=== PATIENT | female | born 1985 | race African-American/Black ===

== ENCOUNTER 2020-06-26 07:38 | Emergency (ER) | payer SELFPAY ==
[2020-06-26 07:56] VITALS: BP 140/97; PULSE 65; TEMP 98.9; BMI 29.2
[2020-06-26] MEDS ORDERED: SODIUM CHLORIDE 0.9% 500 ML INFUS.BAG IV ONE (08:31)
[2020-06-26 09:16] LABS: BASO % 1.1 % (0-2.0); EOS % 2.3 % (0-4.5); HEMATOCRIT 34.8 % (32.4-45.2); HEMOGLOBIN 11.5 GM/dL (10.7-15.3); LYMPH % 40.1 % (8-40); MEAN PLT VOLUME 9.2 fl (7.5-11.1); MONO % 6.1 % (3.8-10.2); NEUT % 50.4 % (42.8-82.8); PLATELET COUNT 243 K/MM3 (134-434); RBC 3.96 M/mm3 (3.60-5.2); RDW 13.7 % (11.6-15.6); WHITE BLOOD COUNT 5.4 K/mm3 (4.0-10.0)
[2020-06-26 09:22] LABS: PH,URINE 6.5 (5.0-8.0); URINE APPEARANCE CLEAR; URINE BILIRUBIN NEGATIVE (NEGATIVE); URINE COLOR YELLOW; URINE GLUCOSE (UA) NEGATIVE (NEGATIVE); URINE KETONE NEGATIVE (NEGATIVE); URINE LEUK ESTERASE NEGATIVE (NEGATIVE); URINE NITRITE NEGATIVE (NEGATIVE); URINE PROTEIN NEGATIVE (NEGATIVE)
[2020-06-26 09:24] LABS: HCG,QUALITATIVE URINE Negative
[2020-06-26 09:31] LABS: POTASSIUM 4.5 mmol/L (3.5-5.1)
[2020-06-26 09:34] LABS: ALBUMIN 3.5 g/dl (3.4-5.0); BLOOD UREA NITROGEN 12.8 mg/dL (7-18); CALCIUM 8.6 mg/dL (8.5-10.1)
[2020-06-26 09:37] LABS: CREATININE 0.7 mg/dL (0.55-1.3)
[2020-06-26 09:38] LABS: BILIRUBIN,TOTAL 0.3 mg/dL (0.2-1)
[2020-06-26 09:39] LABS: TOT PROT 6.8 g/dl (6.4-8.2)
== END 2020-06-26 10:34 | disposition home or self-care (01) ==
LOC: JER 07:38
DX: R10.9 Unspecified abdominal pain (principal)
CPT/HCPCS: 36415; 80053; 81003; 83690; 84703; 85025; 87086; 99284-25

== ENCOUNTER 2020-07-01 20:00 | Emergency (ER) | payer SELFPAY ==
[2020-07-01 20:23] VITALS: BP 143/101; PULSE 73; TEMP 98.8; BMI 29.1
== END 2020-07-01 21:12 | disposition home or self-care (01) ==
LOC: JER 20:00
DX: R05 Cough (principal)
CPT/HCPCS: 87804; 99284-25; C9803; U0003